=== PATIENT | female | born 1945 ===

== ENCOUNTER 2017-01-03 08:21 | Emergency (ER) | payer OTHER ==
[2017-01-03 08:36] VITALS: TEMP 97.9; BMI 24.2
[2017-01-03] MEDS ORDERED: guaiFENesin DM 200 mg-20 mg/10 ml UD PO STA (08:57)
--- NOTE | 2017-01-03 09:02 | ED PDOC ---
Arrival/HPI - General Chief Complaint: ENT Problem Time Seen by Provider: 01/03/17 08:45 Historian: Patient - History of Present Illness Narrative History of Present Illness (Text): 01/03/17 08:59 71 year old female whose past medical history includes hypertension, hypercholesterolemia, and diabetes presents to the emergency department with cough, congestion, sore throat for the past 3 days. Patient reports difficulty swallowing, subjective fevers, and ear pain. Denies recent travel. She states she took a Tussin with no relief. Patient reports blood sugar was 144 this morning. PMD: Dr. Cuellar Time/Duration: < week Symptom Onset: Gradual Symptom Course: Unchanged Modifying Factors (Text): Tussin with no improvement Past Medical History - Provider Review Nursing Documentation Reviewed: Yes - Infectious Disease Hx of Infectious Diseases: None - Tetanus Immunization Tetanus Immunization: Unknown - Reproductive Menopause: Yes - Cardiac Hx Cardiac Disorders: Yes Hx Hypertension: Yes - Pulmonary Hx Respiratory Disorders: No - Neurological Hx Neurological Disorder: No Hx Paralysis: No - HEENT Hx HEENT Disorder: No - Renal Hx Renal Disorder: No - Endocrine/Metabolic Hx Endocrine Disorders: Yes Hx Diabetes Mellitus Type 2: Yes - Hematological/Oncological Hx Blood Disorders: No Hx Blood Transfusions: No Hx Blood Transfusion Reaction: No - Integumentary Hx Dermatological Disorder: No - Musculoskeletal/Rheumatological Hx Musculoskeletal Disorders: Yes Hx Arthritis: Yes - Gastrointestinal Hx Gastrointestinal Disorders: No - Genitourinary/Gynecological Hx Genitourinary Disorders: No - Psychiatric Hx Psychophysiologic Disorder: No Hx Depression: No Hx Emotional Abuse: No Hx Physical Abuse: No Hx Substance Use: No - Surgical History Other/Comment: left eye - Anesthesia Hx Anesthesia: Yes Hx Anesthesia Reactions: No Hx Malignant Hyperthermia: No - Suicidal Assessment Feels Threatened In Home Enviroment: No Family/Social History - Physician Review Nursing Documentation Reviewed: Yes Family/Social History: Unknown Family HX Smoking Status: Never Smoked Hx Alcohol Use: No Hx Substance Use: No Hx Substance Use Treatment: No Allergies/Home Meds Allergies/Adverse Reactions: Allergies No Known Allergies Allergy (Verified 01/03/17 08:36) Home Medications: Home Meds Medication Instructions Recorded Confirmed Aspirin [Aspir 81] 81 mg PO DAILY 04/08/13 01/03/17 Metformin ER [Glucophage XR] 500 mg PO BID 01/03/17 01/03/17 Montelukast [Singulair] 10 mg PO DAILY 01/03/17 01/03/17 Review of Systems - Physician Review All systems were reviewed & negative as marked: Yes - Review of Systems Constitutional: Fevers (subjective) ENT: Sore Throat, Sinus Congestion, Other (Ear pain) Respiratory: Cough Gastrointestinal: absent: Nausea, Vomiting Physical Exam Vital Signs Reviewed: Yes Vital Signs Temp Pulse Resp BP Pulse Ox 01/03/17 11:12 81 17 114/82 99 01/03/17 10:22 80 18 112/78 100 01/03/17 08:31 97.9 F 78 18 119/74 100 Temperature: Afebrile Blood Pressure: Normal Pulse: Regular Respiratory Rate: Normal Appearance: Positive for: Well-Appearing, Non-Toxic, Comfortable Pain Distress: None Mental Status: Positive for: Alert and Oriented X 3 Finger Stick Blood Glucose: 207 - Systems Exam Head: Present: Atraumatic, Normocephalic Pupils: Present: PERRL Extroacular Muscles: Present: EOMI Conjunctiva: Present: Normal Ears: Present: Normal, NORMAL TM. No: Erythema, TM Bulging Mouth: Present: Moist Mucous Membranes Pharnyx: Present: Other (Postnasal drip). No: ERYTHEMA, EXUDATE Neck: Present: Normal Range of Motion. No: Lymphadenopathy Respiratory/Chest: Present: Clear to Auscultation, Good Air Exchange. No: Respiratory Distress, Accessory Muscle Use Cardiovascular: Present: Regular Rate and Rhythm, Normal S1, S2. No: Murmurs Abdomen: Present: Normal Bowel Sounds. No: Tenderness, Distention, Peritoneal Signs Back: Present: Normal Inspection Upper Extremity: Present: Normal Inspection. No: Cyanosis, Edema Lower Extremity: Present: Normal Inspection. No: Edema Neurological: Present: GCS=15, CN II-XII Intact, Speech Normal Skin: Present: Warm, Dry, Normal Color. No: Rashes Psychiatric: Present: Alert, Oriented x 3, Normal Insight, Normal Concentration Medical Decision Making ED Course and Treatment: Impression: 71 year old female whose past medical history includes hypertension , hypercholesterolemia, and diabetes presents to the emergency department with cough, congestion, sore throat for the past 3 days. Differential Diagnosis included but are not limited to: Cough r/o pneumonia Plan: -- Chest X-ray -- Rory Chandler -- Reassess and disposition Progress Notes: Chest X-ray Roll Former: Alexy Allan MD IMPRESSION: No active disease Patient felt better after treatment. Advised her to make sure she follow up with her pmd in 1-2days. Advised her to return to the ED if symptoms worsen or any other concern. - RAD Interpretation Radiology Orders: 01/03/17 09:01 CXR [CHEST TWO VIEWS (PA/LAT)] [RAD] Stat - Medication Orders Current Medication Orders: Discontinued Medications Guaifenesin/Dextromethorphan (Robitussin Dm) 10 ml PO STAT STA Stop: 01/03/17 08:58 Last Admin: 01/03/17 09:13 Dose: 10 ml Ibuprofen (Motrin Tab) 600 mg PO STAT STA Stop: 01/03/17 08:58 Last Admin: 01/03/17 09:13 Dose: 600 mg - Scribe Statement The provider has reviewed the documentation as recorded by the Jarod Sims Provider Scribe Attestation: All medical record entries made by the Keeleyibkendall were at my direction and personally dictated by me. I have reviewed the chart and agree that the record accurately reflects my personal performance of the history, physical exam, medical decision making, and the department course for this patient. I have also personally directed, reviewed, and agree with the discharge instructions and disposition. Disposition/Present on Arrival - Present on Arrival Any Indicators Present on Arrival: No History of DVT/PE: No History of Uncontrolled Diabetes: No Urinary Catheter: No History of Decub. Ulcer: No History Surgical Site Infection Following: None - Disposition Have Diagnosis and Disposition been Completed?: Yes Diagnosis: Bronchitis Disposition: HOME/ ROUTINE Disposition Time: 11:14 Patient Plan: Discharge Condition: IMPROVED Discharge Instructions (ExitCare): Acute Bronchitis (ED) Additional Instructions: Mr De Paz, thank you for letting us take care of you today. Your provider was Dr. Welch. You were treated for Bronchitis. The emergency medical care you received today was directed at your acute symptoms. If you were prescribed any medication, please fill it and take as directed. It may take several days for your symptoms to resolve. Return to the Emergency Department if your symptoms worsen, do not improve, or if you have any other problems. Please contact your doctor or call one of the physicians/clinics you have been referred to that are listed on the Patient Visit Information form that is included in your discharge packet. Bring any paperwork you were given at discharge with you along with any medications you are taking to your follow up visit. Our treatment cannot replace ongoing medical care by a primary care provider (PCP) outside of the emergency department. Thank you for allowing the [facility] team to be part of your care today. If you had an X-Ray or CT scan: A Radiologist will review the ED reading if any change in treatment is needed we will contact you. If you had a blood, urine, or wound culture: It will take several days for the results, if any change in treatment is needed we will contact you. If you had an STI test: It will take 48 hours for the results. Please call after 1 week if you have not heard back. Prescriptions: Benzonatate [Tessalon Perles] 100 mg PO TID #30 sgl guaiFENesin [guaifENESIN] 200 mg PO Q8 #1 bot Ibuprofen [Motrin] 600 mg PO Q6 PRN #30 tab PRN Reason: Pain, Moderate (4-7) Referrals: Yue Cuellar MD [Primary Care Provider] - Follow up with primary Forms: [employer] ([employer]), WORK NOTE
--- NOTE | 2017-01-03 09:51 | RAD ---
HISTORY: cough r/o pna COMPARISON: 03/29/2013 TECHNIQUE: Chest PA and lateral FINDINGS: LUNGS: No active pulmonary disease. PLEURA: No significant pleural effusion identified. No pneumothorax apparent. CARDIOVASCULAR: Normal. OSSEOUS STRUCTURES: No significant abnormalities. VISUALIZED UPPER ABDOMEN: Normal. OTHER FINDINGS: None. IMPRESSION: No active disease.
[2017-01-03 11:13] VITALS: BP 114/82; PULSE 81; RESP 17; O2SAT 99
== END 2017-01-03 11:14 | disposition home or self-care (01) ==
LOC: ED 08:21
DX: J40 Bronchitis, not specified as acute or chronic (principal); I10 Essential (primary) hypertension; E11.9 Type 2 diabetes mellitus without complications; E78.00 Pure hypercholesterolemia, unspecified

== ENCOUNTER 2017-01-18 00:59 | Observation (INO) | payer OTHER ==
[2017-01-18 01:06] VITALS: BMI 23.3
--- NOTE | 2017-01-18 01:12 | ED PDOC ---
Arrival/HPI - General Chief Complaint: Palpitations Time Seen by Provider: 01/18/17 01:07 Historian: Patient - History of Present Illness Narrative History of Present Illness (Text): 01/18/17 01:07 Jenelle De Paz is a 71 year old female, whose past medical history includes diabetes, who presents to the emergency department complaining of palpitations that radiates to her head and chest, accompanied by chest pressure and slight shortness of breath tonight. Patient is also complaining of 2 days duration of a headache. She confirms that this episode is not the worst headache of her life with no sudden onset, no vomiting, no photophobia. Patient denies any other complaint at this time. Time/Duration: 4-6 hours Symptom Onset: Gradual Symptom Course: Unchanged Severity Level: Mild Activities at Onset: Rest Context: Home Past Medical History - Provider Review Nursing Documentation Reviewed: Yes - Infectious Disease Hx of Infectious Diseases: None - Tetanus Immunization Tetanus Immunization: Unknown - Cardiac Hx Cardiac Disorders: Yes Hx Hypertension: Yes - Pulmonary Hx Respiratory Disorders: No - Neurological Hx Neurological Disorder: No Hx Paralysis: No - HEENT Hx HEENT Disorder: No - Renal Hx Renal Disorder: No - Endocrine/Metabolic Hx Endocrine Disorders: Yes Hx Diabetes Mellitus Type 2: Yes - Hematological/Oncological Hx Blood Disorders: No Hx Blood Transfusions: No Hx Blood Transfusion Reaction: No - Integumentary Hx Dermatological Disorder: No - Musculoskeletal/Rheumatological Hx Musculoskeletal Disorders: Yes Hx Arthritis: Yes - Gastrointestinal Hx Gastrointestinal Disorders: No - Genitourinary/Gynecological Hx Genitourinary Disorders: No - Psychiatric Hx Psychophysiologic Disorder: No Hx Depression: No Hx Emotional Abuse: No Hx Physical Abuse: No Hx Substance Use: No - Surgical History Other/Comment: left eye - Anesthesia Hx Anesthesia: Yes Hx Anesthesia Reactions: No Hx Malignant Hyperthermia: No - Suicidal Assessment Feels Threatened In Home Enviroment: No Family/Social History - Physician Review Nursing Documentation Reviewed: Yes Family/Social History: No Known Family HX Smoking Status: Never Smoked Hx Alcohol Use: No Hx Substance Use: No Hx Substance Use Treatment: No Allergies/Home Meds Allergies/Adverse Reactions: Allergies No Known Allergies Allergy (Verified 01/03/17 08:36) Home Medications: Home Meds Medication Instructions Recorded Confirmed Aspirin [Aspir 81] 81 mg PO DAILY 04/08/13 01/19/17 Metformin ER [Glucophage XR] 500 mg PO BID 01/03/17 01/19/17 Montelukast [Singulair] 10 mg PO DAILY 01/03/17 01/19/17 Physical Exam - Physical Exam Narrative Physical Exam (Text): - Review of Systems Constitutional: Normal. absent: Fatigue, Weight Change, Fevers Eyes: Normal ENT: Normal Respiratory: Slight shortness of breath. absent: Cough, Sputum Cardiovascular: Palpitations radiating to chest and head. Chest Pressure. absent : Syncope Gastrointestinal: Normal absent: Abdominal pain, Diarrhea, Nausea, Vomiting Genitourinary: Normal. absent: Dysuria, Frequency, Hematuria Musculoskeletal: Normal. absent: Arthralgias, Back Pain, Neck Pain Skin: Normal Neurological: Normal absent: Focal Weakness Endocrine: Normal Hemo/Lymphatic: Normal Psychiatric: Normal - Physical exam Patient appears age appropriate, speaking full sentences without difficulty - Systems Exam Head: Bilateral Temporal Pulses Present. Present: Atraumatic, Normocephalic. No temporal tenderness b/l Pupils: Present: PERRL Extraocular Muscles: Present: EOMI Conjunctiva: Present: Normal Mouth: Present: Moist Mucous Membranes Neck: Present: Normal Range of Motion. No: MIDLINE TENDERNESS, Paraspinal Tenderness Respiratory/Chest: Present: Clear to Auscultation, Good Air Exchange. No: Respiratory Distress, Accessory Muscle Use, Tachypneic Cardiovascular: Present: Regular Rate and Rhythm, Normal S1, S2, Peripheral Pulses Present. No: Murmurs Abdomen: Present: Normal Bowel Sounds, No: Tenderness, Peritoneal Signs, Rebound, Guarding, Distention Back: Present: Normal Inspection. No: Midline Tenderness, Paraspinal Tenderness Upper Extremity: Present: Normal Inspection. No: Cyanosis, Edema Lower Extremity: Present: Normal Inspection. No: Edema Neurological: Present: GCS=15, Speech Normal, cranial nerves II through XII fully intact with no cerebellar abnormality, neuro-sensory fully intact. No focal neurological deficits. Skin: Present: Warm, Dry, Normal Color. No: Rashes Lymphatic: Present: OX3, NI, NC Psychiatric: Present: Alert, Oriented x 3, Normal Insight, Normal Concentration Vital Signs Reviewed: Yes Vital Signs Temp Pulse Resp BP Pulse Ox 01/18/17 05:50 74 18 158/83 H 99 01/18/17 03:47 70 18 137/83 97 01/18/17 01:12 98.0 F 01/18/17 01:08 91 H 18 163/89 H 97 Temperature: Afebrile Blood Pressure: Hypertensive Pulse: Tachycardic Respiratory Rate: Normal Appearance: Positive for: Well-Appearing, Non-Toxic, Comfortable Pain Distress: None Mental Status: Positive for: Alert and Oriented X 3 Medical Decision Making ED Course and Treatment: 01/18/17 01:07 Impression: 71 year old female complaining of palpitations radiating to chest and head, accompanied by chest pressure and slight shortness of breath tonight. Plan: -- Head CT w/o contrast -- Chest X-ray -- Labs -- Aspirin -- Urinalysis -- Reassess and disposition Prior Visits: Notes and results from previous visits were reviewed. Patient last seen in ED on 01/03/17 for URI Symptoms. Patient was discharged home. Progress Notes: 01/18/17 02:[address] w/o contrast: Dictated and Authenticated by: Carmen Jean MD FINDINGS: There is mild ventriculomegaly and cortical sulci widening. There are areas of diminished density in the periventricular and subcortical white matter bilaterally, nonspecific. There is no evidence for hemorrhage, mass effect, or extra-axial fluid collections. No skull abnormalities are seen. Moderate mucoperiosteal thickening of the maxillary sinuses bilaterally IMPRESSION: No evidence of acute intracranial hemorrhage. No midline shift or hydrocephalus. Age-appropriate atrophy. Areas of diminished density in the periventricular and subcortical white matter bilaterally, nonspecific however likely represent chronic small vessel ischemic change.If symptoms persist, correlation with MRI is advised. 01/18/17 04:[address] Cuellar in detail, who asked to admit to hospitalist. 01/18/17 04:06 dw and signed out to Robyn Castro and Jessica San pt in no distress, aware of and agrees with plan - Lab Interpretations Lab Results: 01/18/17 01:20 01/18/17 01:20 Lab Results 01/18/17 01:20: TSH 3rd Generation 9.45 H 01/18/17 01:20: Sodium 137, Potassium 4.1, Chloride 101, Carbon Dioxide 29, Anion Gap 11, BUN 24 H, Creatinine 0.8, Est GFR ( Amer) > 60, Est GFR ( Non-Af Amer) > 60, Random Glucose 121 H, Calcium 9.7, Total Bilirubin 0.4, AST 24, ALT 31, Alkaline Phosphatase 59, Lactate Dehydrogenase 261 L, Total Creatine Kinase 61, Troponin I < 0.01, Total Protein 7.5, Albumin 4.0, Globulin 3.5, Albumin/Globulin Ratio 1.1 01/18/17 01:20: PT 10.9, INR 1.01, APTT 24.7 01/18/17 01:20: WBC 6.1, RBC 3.91, Hgb 11.0 L, Hct 33.7 L, MCV 86.2, MCH 28.1, MCHC 32.6, RDW 13.8, Plt Count 258, MPV 9.7, Gran % 70.8 H, Lymph % (Auto) 20.5 L, [place] % (Auto) 6.6 H, Eos % (Auto) 1.6, Baso % (Auto) 0.5, Gran # 4.31, Lymph # 1.3, [place] # 0.4, Eos # 0.1, Baso # 0.03 I have reviewed the lab results: Yes - RAD Interpretation Radiology Orders: 01/18/17 01:23 CHEST PORTABLE [RAD] Stat 01/18/17 01:24 HEAD W/O (CODE STROKE) [CT] Stat - Medication Orders Current Medication Orders: Discontinued Medications Acetaminophen (Tylenol 325mg Tab) 650 mg PO Q6H PRN PRN Reason: Fever >100.4 F Alprazolam (Xanax) 0.5 mg PO STAT STA PRN Reason: Protocol Stop: 01/18/17 04:50 Last Admin: 01/18/17 05:11 Dose: 0.5 mg Alprazolam (Xanax) 0.5 mg PO STAT STA PRN Reason: Protocol Stop: 01/18/17 21:53 Last Admin: 01/18/17 22:53 Dose: 0.5 mg Re-Assess: Reassess Psych Meds Document 01/18/17 23:53 MS (Rec: 01/19/17 02:04 MS [id number]) Reassess Psych Med Effective Amoxicillin (Amoxil 500 Mg Cap) 500 mg PO BID FABY PRN Reason: Protocol Last Admin: 01/19/17 09:26 Dose: Amoxicillin (Amoxil 250 Mg Cap) Confirm Administered Dose 500 mg .ROUTE .STK- MED ONE Stop: 01/18/17 11:23 Last Admin: 01/18/17 17:49 Dose: Aspirin (Aspirin Chewable) 324 mg PO STAT STA Stop: 01/18/17 01:24 Last Admin: 01/18/17 02:21 Dose: 324 mg Aspirin (Ecotrin) 81 mg PO DAILY [facility] Last Admin: 01/19/17 09:26 Dose: 81 mg Aspirin (Ecotrin) Confirm Administered Dose 325 mg PO .STK-MED ONE Stop: 01/18/17 11:22 Last Admin: 01/18/17 17:51 Dose: Enoxaparin Sodium (Lovenox) 40 mg SC DAILY [facility] PRN Reason: Protocol Last Admin: 01/19/17 09:26 Dose: Enoxaparin Sodium (Lovenox) Confirm Administered Dose 40 mg .ROUTE .STK-MED ONE Stop: 01/18/17 11:31 Last Admin: 01/18/17 17:54 Dose: Famotidine (Pepcid) 20 mg PO BID [facility] Last Admin: 01/19/17 09:26 Dose: 20 mg Famotidine (Pepcid) Confirm Administered Dose 20 mg .ROUTE .STK-MED ONE Stop: 01/18/17 11:23 Last Admin: 01/18/17 19:43 Dose: Ibuprofen (Motrin Tab) 600 mg PO Q6H PRN PRN Reason: Pain, Mild (1-3) Insulin Human Lispro (Humalog) 0 units SC ACHS [facility] PRN Reason: Protocol Last Admin: 01/19/17 08:19 Dose: Not Given Non-Admin Reason: Blood Sugar Parameter Levalbuterol HCl (Xopenex) 1.25 mg IH Q2H PRN PRN Reason: SOB Levothyroxine Sodium (Synthroid) 25 mcg PO 0600 [facility] Last Admin: 01/19/17 05:42 Dose: 25 mcg Montelukast Sodium (Singulair) 10 mg PO DAILY [facility] Last Admin: 01/19/17 09:26 Dose: 10 mg Montelukast Sodium (Singulair) Confirm Administered Dose 10 mg .ROUTE .STK-MED ONE Stop: 01/18/17 11:22 Last Admin: 01/18/17 12:55 Dose: Pneumococcal Polyvalent Vaccine (Pneumovax 23 Vaccine) 0.5 ml IM .ONCE ONE Stop: 01/19/17 09:37 Last Admin: 01/19/17 09:49 Dose: 0.5 ml - PA / ELECTION SUPERVISOR / Resident Statement MD/DO has reviewed & agrees with the documentation as recorded. - Scribe Statement The provider has reviewed the documentation as recorded by the Jarod Hunt Provider Scribe Attestation: All medical record entries made by the Keeleyibkendall were at my direction and personally dictated by me. I have reviewed the chart and agree that the record accurately reflects my personal performance of the history, physical exam, medical decision making, and the department course for this patient. I have also personally directed, reviewed, and agree with the discharge instructions and disposition. Disposition/Present on Arrival - Present on Arrival Any Indicators Present on Arrival: No History of DVT/PE: No History of Uncontrolled Diabetes: No Urinary Catheter: No History of Decub. Ulcer: No History Surgical Site Infection Following: None - Disposition Have Diagnosis and Disposition been Completed?: Yes Diagnosis: Chest pain Disposition: HOSPITALIZED Disposition Time: 04:08 Patient Plan: Observation Condition: FAIR
[2017-01-18 01:52] LABS: ADD MANUAL DIFF? NO
[2017-01-18 01:59] LABS: BASO # 0.03 K/mm3 (0.0-2.0); BASO % 0.5 % (0.0-3.0); EOS # 0.1 (0.0-0.7); EOS % 1.6 % (1.5-5.0); GRAN # 4.31 (1.4-6.5); GRAN % 70.8 % (50.0-68.0); HEMATOCRIT 33.7 % (36.0-48.0); LYMPH # 1.3 (1.2-3.4); LYMPH % 20.5 % (22.0-35.0); MEAN CELL VOLUME 86.2 fL (80.0-105.0); MEAN CORPUSCULAR HEMOGLOBIN 28.1 pg (25.0-35.0); MEAN CORPUSCULAR HGB CONC 32.6 g/dl (31.0-37.0); MEAN PLATELET VOLUME 9.7 fl (7.0-11.0); MONO # 0.4 (0.1-0.6); MONO % 6.6 % (1.0-6.0); PLATELET COUNT 258 10^3/uL (120.0-450.0); RED CELL DISTRIBUTION WIDTH 13.8 % (11.5-14.5); WHITE BLOOD COUNT 6.1 10^3/ul (4.5-11.0)
[2017-01-18 02:12] LABS: INR 1.01 (0.93-1.08); PARTIAL THROMBOPLASTIN TIME 24.7 Seconds (23.7-30.8)
[2017-01-18 02:14] LABS: ALB/GLOB RATIO 1.1 (1.1-1.8); ALKALINE PHOSPHATASE 59 U/L (38-133); ALT/SGPT 31 U/L (7-56); AST/SGOT 24 U/L (15-39); BILIRUBIN,TOTAL 0.4 mg/dL (0.2-1.3); BLOOD UREA NITROGEN 24 mg/dL (7-21); CALCIUM 9.7 mg/dL (8.4-10.5); CARBON DIOXIDE 29 mmol/L (21-33); CHLORIDE 101 mmol/L (98-107); GFR AFRICAN-AMERICAN > 60; GLUCOSE,RANDOM 121 mg/dL (70-110); POTASSIUM 4.1 mmol/L (3.6-5.0); SODIUM 137 mmol/L (132-148); TOTAL PROTEIN 7.5 g/dL (5.8-8.3)
[2017-01-18 02:34] LABS: TROPONIN I < 0.01 ng/mL
[2017-01-18] MEDS ORDERED: Albuterol 0.083% Inhal Sol (2.5 mg/3 mL) UD IH PRN (04:06)
[2017-01-18] MEDS ORDERED: Levalbuterol 1.25 MG/3 ML Inhal Soln UD IH PRN (04:06)
--- NOTE | 2017-01-18 05:09 | CP.PCM.HP ---
History of Present Illness - History of Present Illness History of Present Illness: CC: Palpitations, anxiety, weight loss This patient is a 71yo F w/ a pmhx of DM, HTN, HLD, who is presenting to the ED w/ a 2d history of palpitations, chest pressure in nature, associated with headache that is not the worst headache of her life not associated with photophobia or vision changes. The patient states she lives alone, and gets very anxious to alone. She states she was "very sick" 2 weeks ago with a cough, came to the hospital, and they gave her some medicine which made her feel better (ibuprofen, tessalon pearls, and cough syrup). She currently denies any VARGAS, CP, SOB, abdominal pain, N/V/D, dysuria/freq/urg, or lower extremity pain. She states "her legs swell sometimes" but don't feel particularly swollen right now PMhx: DM, HTN, HLD Allergies: denies Meds: Please refer to MAR Surgeries: denies FamHx: DM, HTN, HLD Social: lives alone in a senior center, denies EtOH, smoking, drinking, or illicit drugs, independent in all IADL and ADL; admits to lots of 'stressors' crying frequently for no reason, weight loss, loss of appetite Present on Admission - Present on Admission Any Indicators Present on Admission: No History of DVT/PE: No History of Uncontrolled Diabetes: Yes Urinary Catheter: No Decubitus Ulcer Present: No Past Patient History - Infectious Disease Hx of Infectious Diseases: None - Tetanus Immunizations Tetanus Immunization: Unknown - Past Social History Smoking Status: Never Smoked - CARDIAC Hx Cardiac Disorders: Yes Hx Hypertension: Yes - PULMONARY Hx Respiratory Disorders: No - NEUROLOGICAL Hx Neurological Disorder: No Hx Paralysis: No - HEENT Hx HEENT Problems: No - RENAL Hx Chronic Kidney Disease: No - ENDOCRINE/METABOLIC Hx Endocrine Disorders: Yes Hx Diabetes Mellitus Type 2: Yes - HEMATOLOGICAL/ONCOLOGICAL Hx Blood Disorders: No Hx Blood Transfusions: No Hx Blood Transfusion Reaction: No - INTEGUMENTARY Hx Dermatological Problems: No - MUSCULOSKELETAL/RHEUMATOLOGICAL Hx Musculoskeletal Disorders: Yes Hx Arthritis: Yes - GASTROINTESTINAL Hx Gastrointestinal Disorders: No - GENITOURINARY/GYNECOLOGICAL Hx Genitourinary Disorders: No - PSYCHIATRIC Hx Psychophysiologic Disorder: No Hx Depression: No Hx Emotional Abuse: No Hx Physical Abuse: No Hx Substance Use: No - SURGICAL HISTORY Other/Comment: left eye - ANESTHESIA Hx Anesthesia: Yes Hx Anesthesia Reactions: No Hx Malignant Hyperthermia: No Meds Allergies/Adverse Reactions: Allergies Allergy/AdvReac Type Severity Reaction Status Date / Time No Known Allergies Allergy Verified 01/03/17 08:36 Physical Exam - Constitutional Appears: Well, Non-toxic - Head Exam Head Exam: ATRAUMATIC, NORMAL INSPECTION - Eye Exam Eye Exam: EOMI - ENT Exam ENT Exam: Mucous Membranes Moist - Neck Exam Neck exam: Positive for: Full Rom. Negative for: Lymphadenopathy, Thyromegaly Additional comments: no thyroid tenderness - Respiratory Exam Respiratory Exam: Clear to Auscultation Bilateral, NORMAL BREATHING PATTERN. absent: Rales, Rhonchi, Wheezes - Cardiovascular Exam Cardiovascular Exam: REGULAR RHYTHM, +S1, +S2 - GI/Abdominal Exam GI & Abdominal Exam: Normal Bowel Sounds, Soft. absent: Tenderness - Extremities Exam Extremities exam: Positive for: full ROM, normal capillary refill, normal inspection, pedal edema, pedal pulses present. Negative for: calf tenderness, joint swelling, tenderness - Back Exam Back exam: NORMAL INSPECTION. absent: CVA tenderness (L), CVA tenderness (R) - Neurological Exam Neurological exam: Alert, Oriented x3 - Psychiatric Exam Psychiatric exam: Depressed Results - Vital Signs Recent Vital Signs: Last Vital Signs Temp 98.0 F 01/18/17 01:12 Pulse 70 01/18/17 03:47 Resp 18 01/18/17 03:47 BP 137/83 01/18/17 03:47 Pulse Ox 97 01/18/17 03:47 - Labs Result Diagrams: 01/18/17 01:20 01/18/17 01:20 Assessment & Plan - Assessment and Plan (Free Text) Assessment: 71 yo F admitted for palpitations Palpitations -EKG was NSR, no PVCs -troponin negative; will trend -telemetry monitoring -echo ordered; patient states has history of "leaky valve" although nothing was appreciated on exam Hypothyroidism??? -TSH elevated -f/u T4/T3 levels -could also benefit from small dose SSRI; patient states she has been sad for many years now living alone and is scared to alone HLD -c/w home meds HTN -c/w home meds DM -sliding scale Proph -Pepcid -Heart Healthy Diet -Lovenox SC -OOB encouraged Case discussed and seen with Dr. Mena Osorio PGY1 Night Float Decision To Admit - Pt Status Changed To: Hospital Disposition Of: Observation - . Bed Request Type: Remote Telemetry Admitting Physician: Doris San
[2017-01-18 05:54] VITALS: O2SAT 99
--- NOTE | 2017-01-18 07:38 | CT ---
PROCEDURE: CT HEAD WITHOUT CONTRAST. HISTORY: VARGAS COMPARISON: None available. TECHNIQUE: Axial computed tomography images were obtained through the head/brain without intravenous contrast. Radiation dose: Total exam DLP = mGy-cm. This CT exam was performed using one or more of the following dose reduction techniques: Automated exposure control, adjustment of the mA and/or kV according to patient size, and/or use of iterative reconstruction technique. FINDINGS: HEMORRHAGE: No intracranial hemorrhage. BRAIN: No mass effect or edema. No atrophy or chronic microvascular ischemic changes. VENTRICLES: Unremarkable. No hydrocephalus. CALVARIUM: Unremarkable. PARANASAL SINUSES: Unremarkable as visualized. No significant inflammatory changes. MASTOID AIR CELLS: Unremarkable as visualized. No inflammatory changes. OTHER FINDINGS: None. IMPRESSION: Normal CT of the Head.
[2017-01-18 08:18] LABS: CHOLESTEROL 160 mg/dL (130-200)
[2017-01-18 08:36] LABS: TROPONIN I < 0.01 ng/mL
[2017-01-18] MEDS: Insulin Lispro 1 UNITS/0.01 ML SC SCH ×4 (08:51→22:53)
[2017-01-18] MEDS ORDERED: Aspirin 325 mg EC Tablets PO ONE (11:21)
[2017-01-18] MEDS ORDERED: Enoxaparin 40 mg Syringe ONE (11:30)
[2017-01-18] MEDS: Enoxaparin 40 mg Syringe SC SCH (11:31)
[2017-01-18 13:56] LABS: TROPONIN I < 0.01 ng/mL
--- NOTE | 2017-01-18 15:19 | RAD ---
HISTORY: cough COMPARISON: 01/03/2017 FINDINGS: LUNGS: No active pulmonary disease. PLEURA: No significant pleural effusion identified, no pneumothorax apparent. CARDIOVASCULAR: Normal. OSSEOUS STRUCTURES: No significant abnormalities. VISUALIZED UPPER ABDOMEN: Normal. OTHER FINDINGS: None. IMPRESSION: No active disease.
--- NOTE | 2017-01-18 18:07 | CARD ---
APPROVED REPORT EKG Measurement Heart [id number] <Conclusion> Normal sinus rhythm Voltage criteria for left ventricular hypertrophy Abnormal ECG
[2017-01-18 18:28] LABS: TROPONIN I < 0.01 ng/mL
[2017-01-18 21:51] LABS: URINE BILIRUBIN NEGATIVE (NEGATIVE); URINE BLOOD NEGATIVE (NEGATIVE); URINE GLUCOSE (UA) NEGATIVE (NEGATIVE); URINE KETONE NEGATIVE (NEGATIVE); URINE LEUKOCYTE ESTERASE NEGATIVE Leu/uL (NEGATIVE); URINE PROTEIN NEGATIVE mg/dL (<30 mg/dL); URINE UROBILINOGEN 0.2 E.U./dL (<1 E.U./dL)
[2017-01-18 21:52] LABS: URINE APPEARANCE CLEAR (CLEAR); URINE COLOR YELLOW (YELLOW)
[2017-01-19] MEDS ORDERED: Levothyroxine 25 MCG TAB PO SCH (06:00)
[2017-01-19 06:27] VITALS: BP 153/86; RESP 19; TEMP 97.7
[2017-01-19 07:04] LABS: ADD MANUAL DIFF? NO
[2017-01-19 07:13] LABS: BASO # 0.05 K/mm3 (0.0-2.0); BASO % 1.2 % (0.0-3.0); EOS # 0.2 (0.0-0.7); EOS % 4.4 % (1.5-5.0); GRAN # 2.32 (1.4-6.5); GRAN % 56.3 % (50.0-68.0); HEMATOCRIT 35.9 % (36.0-48.0); LYMPH # 1.2 (1.2-3.4); LYMPH % 29.6 % (22.0-35.0); MEAN CELL VOLUME 86.5 fL (80.0-105.0); MEAN CORPUSCULAR HGB CONC 32.3 g/dl (31.0-37.0); MEAN PLATELET VOLUME 9.6 fl (7.0-11.0); MONO # 0.4 (0.1-0.6); MONO % 8.5 % (1.0-6.0); PLATELET COUNT 245 10^3/uL (120.0-450.0); RED CELL DISTRIBUTION WIDTH 14.2 % (11.5-14.5); WHITE BLOOD COUNT 4.1 10^3/ul (4.5-11.0)
[2017-01-19 07:36] LABS: ALB/GLOB RATIO 1.2 (1.1-1.8); ALKALINE PHOSPHATASE 55 U/L (38-133); ALT/SGPT 27 U/L (7-56); AST/SGOT 21 U/L (15-39); BILIRUBIN,TOTAL 0.5 mg/dL (0.2-1.3); BLOOD UREA NITROGEN 18 mg/dL (7-21); CALCIUM 9.6 mg/dL (8.4-10.5); CARBON DIOXIDE 28 mmol/L (21-33); CHLORIDE 104 mmol/L (95-110); GFR AFRICAN-AMERICAN > 60; GLUCOSE,RANDOM 96 mg/dL (70-110); POTASSIUM 4.5 mmol/L (3.6-5.0); SODIUM 140 mmol/L (132-148); TOTAL PROTEIN 7.5 g/dL (5.8-8.3)
[2017-01-19] MEDS: Insulin Lispro 1 UNITS/0.01 ML SC SCH (08:19)
[2017-01-19] MEDS: Enoxaparin 40 mg Syringe SC SCH (09:26)
[2017-01-19] MEDS ORDERED: Pneumococcal 23-Valent Vaccine IM ONE (09:36)
--- NOTE | 2017-01-19 10:15 | CP.PCM.DIS ---
<Baldev Pérez - Last Filed: 01/19/17 10:25> Provider - Provider Date of Admission: 01/18/17 04:09 Attending physician: Andrew Rangel MD Consults: Cardiology - Dr. Ceballos Time Spent in preparation of Discharge (in minutes): 45 Hospital Course - Lab Results Lab Results: Most Recent Lab Values WBC 4.1 10^3/ul (4.5-11.0) L D 01/19/17 07:02 RBC 4.15 10^6/uL (3.5-6.1) 01/19/17 07:02 Hgb 11.6 gm/dL (12.0-16.0) L 01/19/17 07:02 Hct 35.9 % (36.0-48.0) L 01/19/17 07:02 MCV 86.5 fL (80.0-105.0) 01/19/17 07:02 MCH 28.0 pg (25.0-35.0) 01/19/17 07:02 MCHC 32.3 g/dl (31.0-37.0) 01/19/17 07:02 RDW 14.2 % (11.5-14.5) 01/19/17 07:02 Plt Count 245 10^3/uL (120.0-450.0) 01/19/17 07:02 MPV 9.6 fl (7.0-11.0) 01/19/17 07:02 Gran % 56.3 % (50.0-68.0) 01/19/17 07:02 Lymph % (Auto) 29.6 % (22.0-35.0) 01/19/17 07:02 Nolan % (Auto) 8.5 % (1.0-6.0) H 01/19/17 07:02 Eos % (Auto) 4.4 % (1.5-5.0) 01/19/17 07:02 Baso % (Auto) 1.2 % (0.0-3.0) 01/19/17 07:02 Gran # 2.32 (1.4-6.5) 01/19/17 07:02 Lymph # 1.2 (1.2-3.4) 01/19/17 07:02 Nolan # 0.4 (0.1-0.6) 01/19/17 07:02 Eos # 0.2 (0.0-0.7) 01/19/17 07:02 Baso # 0.05 K/mm3 (0.0-2.0) 01/19/17 07:02 PT 10.9 Seconds (9.9-11.8) 01/18/17 01:20 INR 1.01 (0.93-1.08) 01/18/17 01:20 APTT 24.7 Seconds (23.7-30.8) 01/18/17 01:20 Sodium 140 mmol/L (132-148) 01/19/17 07:02 Potassium 4.5 mmol/L (3.6-5.0) 01/19/17 07:02 Chloride 104 mmol/L (95-110) 01/19/17 07:02 Carbon Dioxide 28 mmol/L (21-33) 01/19/17 07:02 Anion Gap 13 (10-20) 01/19/17 07:02 BUN 18 mg/dL (7-21) 01/19/17 07:02 Creatinine 0.8 mg/dL (0.5-1.4) 01/19/17 07:02 Est GFR ( Amer) > 60 01/19/17 07:02 Est GFR (Non-Af Amer) > 60 01/19/17 07:02 POC Glucose (mg/dL) 110 mg/dL (65-110) 01/19/17 07:18 Random Glucose 96 mg/dL (70-110) 01/19/17 07:02 Hemoglobin A1c 7.2 % (4.2-6.5) H 01/18/17 08:00 Calcium 9.6 mg/dL (8.4-10.5) 01/19/17 07:02 Total Bilirubin 0.5 mg/dL (0.2-1.3) 01/19/17 07:02 AST 21 U/L (15-39) 01/19/17 07:02 ALT 27 U/L (7-56) 01/19/17 07:02 Alkaline Phosphatase 55 U/L (38-133) 01/19/17 07:02 Lactate Dehydrogenase 228 U/L (333-699) L 01/18/17 18:01 Total Creatine Kinase 43 U/L (35-230) 01/18/17 18:01 Troponin I < 0.01 ng/mL 01/18/17 18:01 Total Protein 7.5 g/dL (5.8-8.3) 01/19/17 07:02 Albumin 4.0 g/dL (3.0-4.8) 01/19/17 07:02 Globulin 3.5 gm/dL 01/19/17 07:02 Albumin/Globulin Ratio 1.2 (1.1-1.8) 01/19/17 07:02 Triglycerides 153 mg/dL (35-160) 01/18/17 08:00 Cholesterol 160 mg/dL (130-200) 01/18/17 08:00 LDL Cholesterol Direct 97 mg/dL (0-129) 01/18/17 08:00 HDL Cholesterol 33 mg/dL (29-60) 01/18/17 08:00 Free T4 1.06 ng/dL (0.78-2.19) 01/18/17 08:00 Thyroxine (T4) 7.3 ug/dL (5.5-11.0) 01/18/17 11:25 TSH 3rd Generation 9.45 mIU/mL (0.46-4.68) H 01/18/17 01:20 Urine Color Yellow (YELLOW) 01/18/17 21:35 Urine Appearance Clear (CLEAR) 01/18/17 21:35 Urine pH 7.0 (4.7-8.0) 01/18/17 21:35 Ur Specific [place] 1.010 (1.005-1.035) 01/18/17 21:35 Urine Protein Negative mg/dL (<30 mg/dL) 01/18/17 21:35 Urine Glucose (UA) Negative mg/dL (NEGATIVE) 01/18/17 21:35 Urine Ketones Negative mg/dL (NEGATIVE) 01/18/17 21:35 Urine Blood Negative (NEGATIVE) 01/18/17 21:35 Urine Nitrate Negative (NEGATIVE) 01/18/17 21:35 Urine Bilirubin Negative (NEGATIVE) 01/18/17 21:35 Urine Urobilinogen 0.2 E.U./dL (<1 E.U./dL) 01/18/17 21:35 Ur Leukocyte Esterase Negative David/uL (NEGATIVE) 01/18/17 21:35 - Hospital Course Hospital Course: 71 F with a PMHx of DM, HTN, HLD, that presented [place] [facility] with a two day history of palpitation that radiated to her head and chest, accompanied by chest pressure and slight shortness of breath, as well as a headache, however without vision changes or photophobia. Pt was admitted to r/o [facility] for atypical chest pains and associated symptoms. Pt had serial EKGs and troponins drawn. Serial Troponins resulted negative and serial EKGs demonstrated NSR. Cardiology consulted, Dr. Ceballos. CTH was ordered for pts complaints of VARGAS, however resulted as no acute intracranial pathology. CXR also did not reveal any acute cardio- pulmonary patholgy. Pt was placed on telemetry monitoring. Pt labwork demonstrated elevated TSH however normal levels of t3/t4. Pt was seen and examined at bedside. Pt chest pain and palpitations have resolved. Pt noted that she has a history of anxiety. Pt is tolerating diet, ambulating and moving bowels and bladder regularly. Upon discharge, pt will follow up with Dr. Ceballos, Cardiology within one week for further evaluation and management. Pt is encouraged to continue taking your medications as directed prior to coming to the hospital. Pt is also to FU with PMD Dr. Cuellar within one week for further management of pt's chronic health problems. Discharge Exam - Head Exam Head Exam: ATRAUMATIC, NORMAL INSPECTION - Eye Exam Eye Exam: EOMI, Normal appearance, PERRL Pupil Exam: NORMAL ACCOMODATION, PERRL - ENT Exam ENT Exam: Mucous Membranes Moist - Neck Exam Neck exam: Full Rom - Respiratory Exam Respiratory Exam: Clear to PA & Lateral, NORMAL BREATHING PATTERN, UNREMARKABLE - Cardiovascular Exam Cardiovascular Exam: REGULAR RHYTHM, +S1, +S2 - GI/Abdominal Exam GI & Abdominal Exam: Normal Bowel Sounds - Extremities Exam Extremities exam: normal inspection - Neurological Exam Neurological exam: Alert, CN II-XII Intact, Normal Gait, Oriented x3, Reflexes Normal - Psychiatric Exam Psychiatric exam: Normal Affect, Normal Mood - Skin Skin Exam: Dry, Intact, Normal Color, Warm Discharge Plan - Discharge Medications Prescriptions: Alprazolam [Xanax] 0.5 mg PO BID #4 tab Levothyroxine [Synthroid] 25 mcg PO 0600 #30 tab - Follow Up Plan Condition: FAIR Disposition: HOME/ ROUTINE Instructions: Hypothyroidism (DC), Hypothyroidism (GEN), Chronic Hypertension ( GEN), Hyperlipidemia (GEN) Additional Instructions: Please see Dr. Ceballos within one week of discharge for further evaluation and management. Continue taking your medications as you were prior to coming to the hospital. Please see Dr. Cuellar within one week for further management of your chronic health problems. follow-up thyroid function test in 4-6 weeks. Continue Synthroid. Follow-up with psychiatrist as needed for anxiety. Referrals: Yue Cuellar MD [Family Provider] - Andrew Ceballos MD [Staff Provider] - <Jimbo Baig - Last Filed: 01/19/17 16:02> Provider - Provider Date of Admission: 01/18/17 04:09 Attending physician: Andrew Rangel MD Hospital Course - Lab Results Lab Results: Most Recent Lab Values WBC 4.1 10^3/ul (4.5-11.0) L D 01/19/17 07:02 RBC 4.15 10^6/uL (3.5-6.1) 01/19/17 07:02 Hgb 11.6 gm/dL (12.0-16.0) L 01/19/17 07:02 Hct 35.9 % (36.0-48.0) L 01/19/17 07:02 MCV 86.5 fL (80.0-105.0) 01/19/17 07:02 MCH 28.0 pg (25.0-35.0) 01/19/17 07:02 MCHC 32.3 g/dl (31.0-37.0) 01/19/17 07:02 RDW 14.2 % (11.5-14.5) 01/19/17 07:02 Plt Count 245 10^3/uL (120.0-450.0) 01/19/17 07:02 MPV 9.6 fl (7.0-11.0) 01/19/17 07:02 Gran % 56.3 % (50.0-68.0) 01/19/17 07:02 Lymph % (Auto) 29.6 % (22.0-35.0) 01/19/17 07:02 Nolan % (Auto) 8.5 % (1.0-6.0) H 01/19/17 07:02 Eos % (Auto) 4.4 % (1.5-5.0) 01/19/17 07:02 Baso % (Auto) 1.2 % (0.0-3.0) 01/19/17 07:02 Gran # 2.32 (1.4-6.5) 01/19/17 07:02 Lymph # 1.2 (1.2-3.4) 01/19/17 07:02 Nolan # 0.4 (0.1-0.6) 01/19/17 07:02 Eos # 0.2 (0.0-0.7) 01/19/17 07:02 Baso # 0.05 K/mm3 (0.0-2.0) 01/19/17 07:02 PT 10.9 Seconds (9.9-11.8) 01/18/17 01:20 INR 1.01 (0.93-1.08) 01/18/17 01:20 APTT 24.7 Seconds (23.7-30.8) 01/18/17 01:20 Sodium 140 mmol/L (132-148) 01/19/17 07:02 Potassium 4.5 mmol/L (3.6-5.0) 01/19/17 07:02 Chloride 104 mmol/L (95-110) 01/19/17 07:02 Carbon Dioxide 28 mmol/L (21-33) 01/19/17 07:02 Anion Gap 13 (10-20) 01/19/17 07:02 BUN 18 mg/dL (7-21) 01/19/17 07:02 Creatinine 0.8 mg/dL (0.5-1.4) 01/19/17 07:02 Est GFR ( Amer) > 60 01/19/17 07:02 Est GFR (Non-Af Amer) > 60 01/19/17 07:02 POC Glucose (mg/dL) 110 mg/dL (65-110) 01/19/17 07:18 Random Glucose 96 mg/dL (70-110) 01/19/17 07:02 Hemoglobin A1c 7.2 % (4.2-6.5) H 01/18/17 08:00 Calcium 9.6 mg/dL (8.4-10.5) 01/19/17 07:02 Total Bilirubin 0.5 mg/dL (0.2-1.3) 01/19/17 07:02 AST 21 U/L (15-39) 01/19/17 07:02 ALT 27 U/L (7-56) 01/19/17 07:02 Alkaline Phosphatase 55 U/L (38-133) 01/19/17 07:02 Lactate Dehydrogenase 228 U/L (333-699) L 01/18/17 18:01 Total Creatine Kinase 43 U/L (35-230) 01/18/17 18:01 Troponin I < 0.01 ng/mL 01/18/17 18:01 Total Protein 7.5 g/dL (5.8-8.3) 01/19/17 07:02 Albumin 4.0 g/dL (3.0-4.8) 01/19/17 07:02 Globulin 3.5 gm/dL 01/19/17 07:02 Albumin/Globulin Ratio 1.2 (1.1-1.8) 01/19/17 07:02 Triglycerides 153 mg/dL (35-160) 01/18/17 08:00 Cholesterol 160 mg/dL (130-200) 01/18/17 08:00 LDL Cholesterol Direct 97 mg/dL (0-129) 01/18/17 08:00 HDL Cholesterol 33 mg/dL (29-60) 01/18/17 08:00 Free T4 1.06 ng/dL (0.78-2.19) 01/18/17 08:00 Thyroxine (T4) 7.3 ug/dL (5.5-11.0) 01/18/17 11:25 TSH 3rd Generation 9.45 mIU/mL (0.46-4.68) H 01/18/17 01:20 Urine Color Yellow (YELLOW) 01/18/17 21:35 Urine Appearance Clear (CLEAR) 01/18/17 21:35 Urine pH 7.0 (4.7-8.0) 01/18/17 21:35 Ur Specific [place] 1.010 (1.005-1.035) 01/18/17 21:35 Urine Protein Negative mg/dL (<30 mg/dL) 01/18/17 21:35 Urine Glucose (UA) Negative mg/dL (NEGATIVE) 01/18/17 21:35 Urine Ketones Negative mg/dL (NEGATIVE) 01/18/17 21:35 Urine Blood Negative (NEGATIVE) 01/18/17 21:35 Urine Nitrate Negative (NEGATIVE) 01/18/17 21:35 Urine Bilirubin Negative (NEGATIVE) 01/18/17 21:35 Urine Urobilinogen 0.2 E.U./dL (<1 E.U./dL) 01/18/17 21:35 Ur Leukocyte Esterase Negative David/uL (NEGATIVE) 01/18/17 21:35 Attending/Attestation - Attestation I have personally seen and examined this patient.: Yes I have fully participated in the care of the patient.: Yes I have reviewed all pertinent clinical information, including history, physical exam and plan: Yes Notes (Text): 01/19/17 15:57 attending note; Patient seen and examined with resident. Patient's daughter by the bedside. patient currently denies any chest pain. Denies any shortness of breath. Denies any palpitations. Cardiac enzymes x 4 negative. Cardiology evaluation with Dr. Ceballos appreciated. Patient had stress test in 2014 which was negative. Anxiety; patient is planning to fly next week. According to the family the patient gets anxious before every flight. Patient usually gets prescription of Xanax from PMD . Currently requesting few Xanax. Refused psychiatric evaluation. hypothyroid; started on Synthroid. Follow-up thyroid function test in 4-6 weeks. Patient will be discharged home. Follow-up with PMD Dr. Cuellar. Diagnosis; Palpitations Anxiety diabetes Hypothyroid 01/19/17 16:01
[2017-01-19 11:00] VITALS: PULSE 66
--- NOTE | 2017-01-21 08:30 | CON ---
DATE: 01/18/2017 REASON FOR CONSULTATION AND FOLLOWUP: Cardiac evaluation, palpitation, anxiety, pressure in the ches t and headache. BRIEF CLINICAL HISTORY: A 71-year-old female with past medical significant for diabetes, hypertensio n, hyperlipidemia, came in with complaint of pressure chest, palpitation and headache. The patient h as a lot of stress traveling to [place] and she thinks she is stressed out. Denies any recent ches t pain or dyspnea on exertion or shortness of breath on exertion. PAST MEDICAL HISTORY: Significant for diabetes, hypertension, hyperlipidemia. ALLERGIES: No known drug allergies. PAST SURGICAL HISTORY: Significant for ____ 20 years ago. FAMILY HISTORY: No history of coronary artery disease. SOCIAL HISTORY: Denies smoking. Denies any history of alcohol abuse. PREVIOUS CARDIAC WORKUP as follows: The patient had a stress test and echo. A stress test was done on 11/10/2014 and was essentially normal myocardial perfusion study, ejection fraction 62%. The jensen ent had echo done in Dr. Barroso's office; mild MR, mild TR reported as per patient, did not see the r eport myself. REVIEW OF SYSTEMS: As per HPI. PHYSICAL EXAMINATION: VITAL SIGNS: Temperature afebrile, heart rate 81, blood pressure 145/76. HEENT: PERRLA. Extraocular muscles intact. NECK: Supple. No carotid bruits. No thyromegaly. CHEST: Clear to auscultation. HEART: S1, S2 regular. ABDOMEN: Soft. EXTREMITIES: Clubbing and cyanosis negative. LABORATORY DATA: Blood workup as follows: WBC 6.7, hemoglobin 11.0, hematocrit 33.7, platelet count 258. Chemistry shows sodium ____, potassium 4.____, chloride 101, carbon dioxide ____, anion gap of 11, BUN ____, creatinine 0.8. TSH is 9.45, triglycerides 153, cholesterol 160, LDL 97, HDL 33. Tro ponin 0.01 negative. IMPRESSION: Atypical chest pain, diabetes, hypertension, hyperlipidemia, hypothyroidism, history of a stress test 2 years ago was negative. History of echo and normal left ventricular function, mild m itral regurgitation, mild tricuspid regurgitation. RECOMMENDATIONS: The patient is stable from cardiac point of view. We will repeat another set of en zymes, if set is negative, we will possibly discharge, follow up as outpatient. We will start Levoxy l because the patient has elevated TSH, so hypothyroidism, start supplementing low-dose 25 from tomor row and monitor 6 weeks TSH. We will follow with you. Thank you, ____, for providing the opportunity in taking care of the patient. Will repeat stress test as outpatient. Andrew Ceballos MD cc: [id number] TT: 01/18/2017 21:20:32 Confirmation # [id number] Dictation # [id number]
== END 2017-01-19 11:23 | disposition home or self-care (01) ==
LOC: ED 00:59 → ERH 04:09 → 2RNO 06:13
PROVIDERS: ADMIT Internal Medicine; ATTEND Internal Medicine
DX: F41.9 Anxiety disorder, unspecified (principal); R00.2 Palpitations; E11.9 Type 2 diabetes mellitus without complications; E03.9 Hypothyroidism, unspecified; R07.89 Other chest pain; E78.5 Hyperlipidemia, unspecified; I10 Essential (primary) hypertension; I08.1 Rheumatic disorders of both mitral and tricuspid valves; Z79.82 Long term (current) use of aspirin; Z79.899 Other long term (current) drug therapy; Z82.49 Family history of ischemic heart disease and other diseases of the circulatory system; Z83.3 Family history of diabetes mellitus; M19.90 Unspecified osteoarthritis, unspecified site; R40.2412 Glasgow coma scale score 13-15, at arrival to emergency department; R63.0 Anorexia; R63.4 Abnormal weight loss; Z23 Encounter for immunization
CPT/HCPCS: 36415; 70450; 71010; 80053; 80061; 81003; 82550; 82948; 83036; 83615; 84439; 84443; 84481; 84484; 85025; 85610; 85730; 90732; 93005; 96372; 99285; G0009; G0378; J1650

== ENCOUNTER 2018-01-01 03:27 | Emergency (ER) | payer MEDICARE, OTHER ==
[2018-01-01 03:27] VITALS: BMI 23.3
[2018-01-01] MEDS ORDERED: Sodium Chloride 0.9% 1,000 ML IV STA (03:59)
--- NOTE | 2018-01-01 04:00 | ED PDOC ---
Arrival/HPI - History of Present Illness Time/Duration: Prior to Arrival Symptom Onset: Sudden Symptom Course: Unchanged Quality: Pressure Severity Level: 6 <Ky Calloway - Last Filed: 01/01/18 05:59> <Dinesh Wheat - Last Filed: 01/01/18 19:39> - General Chief Complaint: Palpitations Time Seen by Provider: 01/01/18 03:48 - History of Present Illness Narrative History of Present Illness (Text): 72 year old female with past medical history of DM, HTN, hypothyroidism presents with palpitations and chest pressure which began 3 hours before arrival. Patient states she lives alone, lonely not able to fall sleep and felt palpitations with non radiating pressure in her chest. She also says she has left side flank and lower back pain which began a week ago and has not resolved. She complains of SOB, nausea, headache but denies any abdominal pain, fever, chills . 01/01/18 04:01 (Ky Calloway) Past Medical History - Provider Review Nursing Documentation Reviewed: Yes - Infectious Disease Hx of Infectious Diseases: None - Tetanus Immunization Tetanus Immunization: Unknown - Cardiac Hx Cardiac Disorders: Yes Hx Hypertension: Yes - Pulmonary Hx Respiratory Disorders: No - Neurological Hx Neurological Disorder: No Hx Paralysis: No - HEENT Hx HEENT Disorder: No - Renal Hx Renal Disorder: No - Endocrine/Metabolic Hx Endocrine Disorders: Yes Hx Diabetes Mellitus Type 2: Yes - Hematological/Oncological Hx Blood Disorders: No Hx Blood Transfusions: No Hx Blood Transfusion Reaction: No - Integumentary Hx Dermatological Disorder: No - Musculoskeletal/Rheumatological Hx Musculoskeletal Disorders: Yes Hx Arthritis: Yes - Gastrointestinal Hx Gastrointestinal Disorders: No - Genitourinary/Gynecological Hx Genitourinary Disorders: No - Psychiatric Hx Psychophysiologic Disorder: No Hx Depression: No Hx Emotional Abuse: No Hx Physical Abuse: No Hx Substance Use: No - Surgical History Other/Comment: left eye - Anesthesia Hx Anesthesia: Yes Hx Anesthesia Reactions: No Hx Malignant Hyperthermia: No - Suicidal Assessment Feels Threatened In Home Enviroment: No <Ky Calloway - Last Filed: 01/01/18 05:59> Family/Social History - Physician Review Nursing Documentation Reviewed: Yes Family/Social History: No Known Family HX Smoking Status: Never Smoked Hx Alcohol Use: No Hx Substance Use: No Hx Substance Use Treatment: No <Ky Calloway - Last Filed: 01/01/18 05:59> Allergies/Home Meds <Ky Calloway - Last Filed: 01/01/18 05:59> <Dinesh Wheat - Last Filed: 01/01/18 19:39> Allergies/Adverse Reactions: Allergies No Known Allergies Allergy (Verified 01/03/17 08:36) Home Medications: Home Meds Medication Instructions Recorded Confirmed MetFORMIN ER [Glucophage XR] 500 mg PO BID 01/03/17 01/01/18 Review of Systems - Review of Systems Constitutional: Normal Eyes: Normal ENT: Normal Respiratory: SOB. absent: Cough, Wheezing Cardiovascular: Other (chest pressure ). absent: Syncope Gastrointestinal: Nausea. absent: Abdominal Pain, Diarrhea, Vomiting Musculoskeletal: Back Pain Skin: Normal Neurological: Headache. absent: Dizziness, Disequilibrium <Ky Calloway Last Filed: 01/01/18 05:59> Physical Exam Vital Signs Reviewed: Yes Temperature: Afebrile Blood Pressure: Hypertensive Pulse: Regular Respiratory Rate: Normal Appearance: Positive for: Well-Appearing, Non-Toxic, Comfortable Mental Status: Positive for: Alert and Oriented X 3 - Systems Exam Head: Present: Atraumatic, Normocephalic Pupils: Present: PERRL Extroacular Muscles: Present: EOMI Respiratory/Chest: Present: Clear to Auscultation. No: Respiratory Distress Cardiovascular: Present: Regular Rate and Rhythm, Normal S1, S2 Abdomen: No: Tenderness, Distention Back: Present: Other (tenderness ) Upper Extremity: No: Edema Lower Extremity: No: Edema Neurological: Present: GCS=15, CN II-XII Intact Psychiatric: Present: Oriented x 3 <Ky Calloway - Last Filed: 01/01/18 05:59> Vital Signs Temp Pulse Resp BP Pulse Ox 01/01/18 12:54 98 F 82 142/76 98 01/01/18 09:00 74 14 147/80 98 01/01/18 07:20 97.7 F 72 18 155/77 H 99 01/01/18 04:27 97.8 F 81 20 165/78 H 98 Medical Decision Making - Lab Interpretations I have reviewed the lab results: Yes <Ky Calloway - Last Filed: 01/01/18 05:59> <Dinesh Wheat - Last Filed: 01/01/18 19:39> ED Course and Treatment: Plan -EKG -CBC CMP -CT abdomen and pelvis -Troponins -TSH, T4 -reasses 01/01/18 04:07 EKG showing NSR, unofficial 01/01/18 04:40 Patient will be admitted under Dr. Sandoval service for chest pain 01/01/18 05:58 (Ky Calloway) 01/01/18 04:49 Patient Seen With Resident: In agreement with resident note which contains more details about the patient. Patient was seen and evaluated with resident. Came up with plan and treatment together. (Dinesh Wheat) - Lab Interpretations Lab Results: 01/01/18 04:29 01/01/18 04:29 Lab Results 01/01/18 04:29: WBC 5.5 D, RBC 4.17, Hgb 11.6 L, Hct 36.2, MCV 86.8, MCH 27.8, MCHC 32.0, RDW 13.5, Plt Count 231, MPV 10.3, Gran % 75.1 H, Lymph % (Auto) 15.9 L, [place] % (Auto) 7.7 H, Eos % (Auto) 1.1 L, Baso % (Auto) 0.2, Gran # 4.11 , Lymph # (Auto) 0.9 L, [place] # (Auto) 0.4, Eos # (Auto) 0.1, Baso # (Auto) 0.01 01/01/18 04:29: Free T4 1.07, TSH 3rd Generation 6.36 H 01/01/18 04:29: Sodium 142, Potassium 4.1, Chloride 103, Carbon Dioxide 27, Anion Gap 16, BUN 28 H, Creatinine 0.9, Est GFR ( Amer) > 60, Est GFR ( Non-Af Amer) > 60, Random Glucose 148 H, Calcium 10.0, Total Bilirubin 0.3, AST 23, ALT 30, Alkaline Phosphatase 58, Troponin I < 0.01, Total Protein 7.9, Albumin 4.4, Globulin 3.4, Albumin/Globulin Ratio 1.3 - RAD Interpretation Radiology Orders: 01/01/18 03:56 ABDOMEN & PELVIS [ABD & PELVIS IV CONTRAST ONLY] [CT] Stat - Medication Orders Current Medication Orders: Discontinued Medications Acetaminophen (Tylenol 325mg Tab) 650 mg PO STAT STA Stop: 01/01/18 06:10 Last Admin: 01/01/18 06:32 Dose: 650 mg MAR Pain/Vitals Document 01/01/18 06:32 RG (Rec: 01/01/18 06:36 [id number] Pain Reassessment Is This A Pain ReAssessment? Yes Location Left, Right or Bilateral Left Pain Location Body Site Chest Acetaminophen (Tylenol 325mg Tab) 650 mg PO Q4H PRN PRN Reason: Fever >100.5 F Sodium Chloride (Sodium Chloride 0.9%) 1,000 mls @ 999 mls/hr IV .Q1H1M STA Stop: 01/01/18 04:59 Last Admin: 01/01/18 05:01 Dose: 999 mls/hr eMAR Start Stop Document 01/01/18 05:01 RG (Rec[facility]01[facility]18 06:37 [id number] Intravenous Solution Start Date 01/01/18 Start Time 05:01 Levothyroxine Sodium (Synthroid) 25 mcg PO 0600 FABY Lisinopril (Zestril) 10 mg PO DAILY FABY Lisinopril (Zestril) 5 mg PO DAILY FABY Metformin HCl (Glucophage Xr) 500 mg PO BID FABY Metoprolol Tartrate (Lopressor) 25 mg PO BID FABY - PA / CORE MANAGER / Resident Statement / has reviewed & agrees with the documentation as recorded. / has examined the patient and agrees with the treatment plan. <Dinesh Wheat - Last Filed: 01/01/18 19:39> Disposition/Present on Arrival - Present on Arrival Any Indicators Present on Arrival: No History of DVT/PE: No History of Uncontrolled Diabetes: No Urinary Catheter: No History of Decub. Ulcer: No History Surgical Site Infection Following: None - Disposition Have Diagnosis and Disposition been Completed?: Yes Disposition Time: 05:58 <Ky Calloway - Last Filed: 01/01/18 05:59> - Present on Arrival Any Indicators Present on Arrival: No - Disposition Have Diagnosis and Disposition been Completed?: Yes <Dinesh Wheat - Last Filed: 01/01/18 19:39> - Disposition Diagnosis: Chest pain Disposition: HOSPITALIZED Condition: GOOD Referrals: Yue Cuellar MD [Primary Care Provider] -
[2018-01-01 05:04] LABS: BASO # 0.01 K/mm3 (0.0-2.0); BASO % 0.2 % (0.0-3.0); EOS # 0.1 (0.0-0.7); EOS % 1.1 % (1.5-5.0); GRAN # 4.11 (1.4-6.5); GRAN % 75.1 % (50.0-68.0); HEMOGLOBIN 11.6 g/dL (12.0-16.0); LYMPH # 0.9 (1.2-3.4); LYMPH % 15.9 % (22.0-35.0); MEAN CELL VOLUME 86.8 fl (80.0-105.0); MEAN CORPUSCULAR HEMOGLOBIN 27.8 pg (25.0-35.0); MEAN PLATELET VOLUME 10.3 fl (7.0-11.0); MONO # 0.4 (0.1-0.6); MONO % 7.7 % (1.0-6.0); RBC 4.17 10^6/uL (3.5-6.1); RED CELL DISTRIBUTION WIDTH 13.5 % (11.5-14.5); WHITE BLOOD COUNT 5.5 10^3/ul (4.5-11.0)
[2018-01-01 05:14] LABS: ALB/GLOB RATIO 1.3 (1.1-1.8); ALBUMIN 4.4 g/dL (3.0-4.8); ALT/SGPT 30 U/L (7-56); AST/SGOT 23 U/L (14-36); BLOOD UREA NITROGEN 28 mg/dL (7-21); GFR AFRICAN-AMERICAN > 60; GFR NON-AFRICAN AMERICAN > 60
[2018-01-01 05:32] LABS: TROPONIN I < 0.01 ng/mL
[2018-01-01 05:38] LABS: FREE T4 1.07 ng/dL (0.78-2.19)
[2018-01-01] MEDS ORDERED: Iohexol 350 MG/100 ML VIAL ONE (06:31)
--- NOTE | 2018-01-01 08:34 | CT ---
EXAM: CT Abdomen and Pelvis With Intravenous Contrast CLINICAL HISTORY: 72 years old, female; Pain; Abdominal pain; Flank; Right; Additional info: Flank pain TECHNIQUE: Axial computed tomography images of the abdomen and pelvis with intravenous contrast. All CT scans at this facility use one or more dose reduction techniques, viz.: automated exposure control; ma/kV adjustment per patient size (including targeted exams where dose is matched to indication; i.e. head); or iterative reconstruction technique. 634 images are submitted. Axial images are submitted in soft tissue and lung windows. Coronal and sagittal reformatted images were created and reviewed. Axial reformatted images were created and reviewed. CONTRAST: 100 mL of omnipaque 350 administered intravenously. COMPARISON: CT - ABD PELVIS W/O PO OR IV CONT 2015-07-26 13:36 FINDINGS: Lung bases: Mild hazy patchy groundglass opacity to the lung bases. Correlation with patient's clinical data off bronchitis versus reactive airway disease versus mild failure is recommended. Mediastinum: Small hiatal hernia. ABDOMEN: Liver: Fatty liver. Gallbladder and bile ducts: Partially distended gallbladder. Left upper quadrant splenules. The spleen appears unremarkable. Duodenal diverticulum. Pancreas: Unremarkable. No mass. No ductal dilation. Spleen: See above. Adrenals: Unremarkable. No mass. Kidneys and ureters: Right and possible left renal cortical scarring. There are renal hypodensities too small to characterize. Mild physiologic prominence of the ureters without ureteral stone. Stomach and bowel: There is nonspecific left colonic thickening and diffuse thickening of the sigmoid colon with diverticulosis seen on image 73 series 2 with mild surrounding haziness. Correlation with clinical data is recommended to evaluate for infectious versus inflammatory colitis/diverticulitis if clinically suspected. Diverticulosis. There is stool like appearance to the distal small bowel. This may represent slow transit. Nonspecific gastric thickening likely due to under distention. Correlation with clinical data is recommended if gastritis is suspected. PELVIS: Appendix: Normal appendix. Bladder: Partially distended bladder with bladder wall thickening. Correlation with urinalysis is recommended only if clinical cystitis is suspected. Reproductive: Unremarkable. ABDOMEN and PELVIS: Intraperitoneal space: Unremarkable. No free air. No significant fluid collection. Bones/joints: Multilevel vacuum degenerative disc disease. No acute fracture. No dislocation. Soft tissues: Unremarkable. Vasculature: The aorta demonstrates calcified plaque and is mildly ectatic but normal in caliber. No abdominal aortic aneurysm. Lymph nodes: Unremarkable. No enlarged lymph nodes. Other findings: Urachal remnant. IMPRESSION: 1. There is nonspecific left colonic thickening and diffuse thickening of the sigmoid colon with diverticulosis seen on image 73 series 2 with mild surrounding haziness. Correlation with clinical data is recommended to evaluate for infectious versus inflammatory colitis/diverticulitis if clinically suspected. 2. No definite right-sided abnormality or acute obstructive uropathy is identified.
[2018-01-01 09:03] VITALS: RESP 14; O2SAT 98
[2018-01-01 12:55] VITALS: BP 142/76; PULSE 82; TEMP 98
--- NOTE | 2018-01-01 14:49 | CARD ---
APPROVED REPORT EKG Measurement Heart [id number] <Conclusion> Normal sinus rhythm Moderate voltage criteria for LVH, may be normal variant PRWP
--- NOTE | 2018-01-01 20:58 | CON ---
REASON FOR CONSULTATION: Followup chest pain, flank pain, palpitation, anxiety, especially the chest and headache. BRIEF CLINICAL HISTORY: This is a 72-year-old female with past medical history significant for type 2 diabetes, hypertension, hypothyroidism and feels left flank pain all over for 1 one week prior to coming here that has been going for more than a week associated now with feeling anxiety and palpitation and some pressure in the chest, so came to the emergency room. Denies any dizziness on exertion, chest pain on exertion or angina. PAST MEDICAL HISTORY: Significant for diabetes, hypertension, hyperlipidemia. ALLERGIES: NO KNOWN DRUG ALLERGIES. PAST SURGICAL HISTORY: Significant for 20 years ago. FAMILY HISTORY: No history of coronary artery disease. SOCIAL HISTORY: Denies smoking. Denies any history of alcohol abuse. PREVIOUS CARDIAC WORKUP: As follows, patient had a stress test 11/10/2014, essentially normal myocardial perfusion study with ejection fraction of 62%. Patient has also echo at Dr. Barroso's office that shows mild MR, mild TR year and half ago, preserved LV function. CURRENT MEDICATIONS: Patient is on metformin 500 mg daily, levothyroxine 25 mcg daily. REVIEW OF SYSTEMS: As per HPI. PHYSICAL EXAMINATION: VITAL SIGNS: Temperature afebrile, heart rate 72, blood pressure 147/80. HEENT: PERRLA. Extraocular muscles intact. NECK: Supple. No carotid bruits or thyromegaly. CHEST: Clear to auscultation. HEART: S1, S2 regular. ABDOMEN: Soft. EXTREMITIES: Clubbing and cyanosis negative. EKG shows normal sinus and no acute ST-T changes noted. LABORATORY DATA: Blood workup as follows. WBC 5.5, hemoglobin 11.6, hematocrit 36.2, platelet count 231. Chemistry shows sodium 142, potassium 4, chloride 103, carbon dioxide 27, anion gap of 16, BUN 28, creatinine 0.6, TSH 6.36. Patient underwent CAT scan of the abdomen and pelvis in the ER that shows nonspecific chronic diffuse thickening noted. No evidence of right-sided abnormality or acute obstructive uropathy identified. IMPRESSION AND PLAN: Anxiety disorder, atypical chest pain, diabetes, hypertension, hyperlipidemia. Given the multiple coronary artery disease, suggest echocardiogram and stress test. We will get a second set of troponin. If second set of troponin is negative, we will do stress test tomorrow with lipid profile, TSH, hemoglobin A1c. We will follow with you. Thank you, Dr. Cuellar, for providing us the opportunity in taking care of Jenelle De Paz. Andrew Ceballos MD
[2018-01-02] MEDS ORDERED: Levothyroxine 25 MCG TAB PO SCH (06:00)
== END 2018-01-01 12:53 | disposition left against medical advice (07) ==
LOC: ED 03:27 → UNDOADMOB 06:17 → ERH 06:17
DX: R07.9 Chest pain, unspecified (principal); I10 Essential (primary) hypertension; E11.9 Type 2 diabetes mellitus without complications; E03.9 Hypothyroidism, unspecified; M19.90 Unspecified osteoarthritis, unspecified site
CPT/HCPCS: 74177; 80053; 84439; 84443; 84484; 85025; 93005; 99285; J7030; Q9967